=== PATIENT | female | born 1980 | race Caucasian/White ===

== ENCOUNTER 2021-12-27 13:14 | Emergency (ER) | payer OTHER ==
[~2021-12-27] VITALS: Ht 167.6 cm; Wt 81.2 kg
[2021-12-27] MEDS ORDERED: KETOROLAC 30MG VIAL (30MG/ML) IM ONE (13:30)
[2021-12-27 13:45] LABS: APPEARANCE,URINE CLEAR (CLEAR); BILIRUBIN,URINE NEGATIVE (NEGATIVE); COLOR,URINE YELLOW (YELLOW); GLUCOSE, URINE (UA) NEGATIVE (NEGATIVE); KETONES,URINE NEGATIVE (NEGATIVE); LEUKOCYTE ESTERASE ,URINE TRACE (NEGATIVE); NITRATE,URINE NEGATIVE (NEGATIVE); OCCULT BLOOD,URINE NEGATIVE (NEGATIVE); PROTEIN,URINE NEGATIVE (NEGATIVE); UROBILINOGEN,URINE 0.2 mg/dL (0.2-1.0)
[2021-12-27 13:53] LABS: HCG,QUALITATIVE URINE NEGATIVE (NEGATIVE)
[2021-12-27 14:23] LABS: RBC,URINE 0-1 /HPF (0-1)
[2021-12-27 14:24] LABS: SQUAMOUS EPITHELIAL CELL,UR Moderate /HPF (0-2)
[2021-12-27 14:25] LABS: BACTERIA,URINE Moderate /HPF (None Seen)
[2021-12-27] MEDS ORDERED: CYCL10TA16 PO (14:47)
[2021-12-27] MEDS ORDERED: NAPR500T6 PO (14:47)
[2021-12-27 15:24] VITALS: BP 123/78
== END 2021-12-27 15:25 | disposition home or self-care (01) ==
LOC: EDH 13:14
DX: S39.012A Strain of muscle, fascia and tendon of lower back, initial encounter (principal); X58.XXXA Exposure to other specified factors, initial encounter; Y93.89 Activity, other specified; Y92.89 Other specified places as the place of occurrence of the external cause; Y99.8 Other external cause status
CPT/HCPCS: 99284; 87088; 81001; 81025; 72100; 96372; J1885